=== PATIENT | female | born 1980 | race Caucasian/White ===

== ENCOUNTER 2018-12-05 21:09 | Emergency (ER) | payer OTHER ==
[~2018-12-05] VITALS: Ht 162.6 cm; Wt 71.7 kg
[~2018-12-05 21:09] MED LIST: CYCL10TA7 PO; NAPR-985 PO
[2018-12-05 21:28] VITALS: BP 117/58; PULSE 95; RESP 16; Ht 162.6 cm; Wt 71.7 kg
[2018-12-05] MEDS ORDERED: KETOROLAC 30 MG INJ IM STA (22:09)
[2018-12-05] MEDS ORDERED: DEXAMETHASONE 10 MG/ML 1 ML INJ IM ONE (22:30)
--- NOTE | 2018-12-06 01:21 | ERD ---
ER Documentation Chief Complaint Chief Complaint left flank pain started at 1200H today. HPI 38-year-old female presenting to the emergency department complaining of left- sided low back pain with radiation down her left leg intermittently for the past 2 months. Her pain is rated 8/10 in severity, intermittent, alleviated with [id number] medication. 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 Additional symptoms include full body aches. She denies any nausea, vomiting, diarrhea, fevers, dysuria, falls, or other symptoms at this time. ROS All systems reviewed and are negative except as per history of present illness. Medications Home Meds Active Scripts Naproxen* (Naprosyn*) 500 Mg Tablet, 500 MG PO BID PRN for PAIN AND/OR INFLA MMATION, #30 TAB Prov:KENY WARE PA-C 12/05/18 Cyclobenzaprine Hcl* (Cyclobenzaprine Hcl*) 10 Mg Tablet, 10 MG PO TID, #15 TAB Prov:KENY WARE PA-C 12/05/18 Allergies Allergies: Coded Allergies: No Known Allergy (Unverified , 12/05/18) PMhx/Soc Medical and Surgical Hx: pt denies Medical Hx, pt denies Surgical Hx Hx Alcohol Use: No Hx Substance Use: No Hx Tobacco Use: No Smoking Status: Never smoker FmHx Family History: No diabetes Physical Exam Vitals Vital Signs Date Temp Pulse Resp B/P (MAP) Pulse Ox O2 O2 Flow FiO2 Time Delivery Rate 12/05/18 99.2 95 16 117/58 99 21:28 (77) Physical Exam Const: No acute distress Head: Atraumatic Eyes: Normal Conjunctiva ENT: Normal External Ears, Nose and Mouth. Neck: Full range of motion. No meningismus. Resp: Clear to auscultation bilaterally Cardio: Regular rate and rhythm, no murmurs Abd: Soft, non tender, non distended. Normal bowel sounds Skin: No petechiae or rashes Back: No midline or flank tenderness. Tenderness palpation of the paraspinal muscles of the lumbar spine. Skin: No bruising or rash Compartments: Soft Motor: Normal flexion and extension of bilateral hip/knee/ankle/foot Sensation: Intact to light touch throughout Bones: No midline TTP Ext: No cyanosis, or edema Neur: Awake and alert Psych: Normal Mood and Affect Results 24 hrs Laboratory Tests Test 12/05/18 22:24 POC Beta HCG, Qualitative NEGATIVE Current Medications Medications Dose Sig/Arnoldo Start Time Status Last (Trade) Ordered Route PRN Stop Time Admin Dose Reason Admin 10 mg ONCE ONCE 12/05/18 DC 12/05/18 Dexamethasone IM 22:30 22:27 (Decadron) 12/05/18 22:31 Ketorolac 30 mg ONCE STAT 12/05/18 DC 12/05/18 Tromethamine IM 22:09 22:27 (Toradol) 12/05/18 22:10 Procedures/MDM 38-year-old female presents to the emergency department complaining of left- sided low back pain with radiation down her left leg. History and physical examination is consistent with low back pain with sciatica. Patient was administered Decadron and Toradol in the department with significant improvement of her symptoms. Patient's musculoskeletal symptoms have stabilized while they have been evaluated in the department and are appropriate for outpatient work up. No evidence of cauda equina, cord compression, infiltrative, or infectious etiology. Departure Diagnosis: Primary Impression: Low back pain with sciatica Chronicity: acute Back pain laterality: left Sciatica laterality: sciatica of left side Qualified Codes: M54.42 - Lumbago with sciatica, left side Condition: Fair Patient Instructions: Back Pain W/ Sciatica [facility] Usted se kennedy hecho un examen mdico de control que le indica que no est en jenn condicin que requiera tratamiento urgente en el Departamento de Emergencia. Un estudio ms profundo y el tratamiento de medrano condicin pueden esperar sin ningn riesgo hasta que usted sea atendida/o en el consultorio de medrano mdico o jenn clnica. Es responsabilidad suya arreglar jenn lisa para el seguimiento del selena. MANEJO DE CONDICIONES NO URGENTES EN EL FUTURO 1) Si usted tiene un mdico de atencin primaria: Usted debera llamar a medrano mdico de atencin primaria antes de venir al departamento de emergencia. Despus de las horas de consultorio, medrano doctor o medrano asociado/a est disponible por telfono. El mdico o enfermero de bernardo en el servicio telefnico puede asesorarle por keo medio para atender el problema, o selena contrario se puede programar jenn lisa. 2) Si usted no tiene un mdico de atencin primaria: Llame al mdico o clnica de referencia que aparece abajo chela las horas de consultorio para hacer jenn lisa para que le vean. CLINICAS: [facility] [phone] [id number] [facility] [facility] [phone] [facility] [phone] [address] [facility]. [place] [id number] [phone] [facility] [phone] [address] [facility]. [phone] [address] Additional Instructions: Llame al doctor MAANA y kathy jenn LISA PARA DENTRO DE 1-2 [place].Dgale a la secretaria que nosotros le instruimos hacer esta lisa.Avise o llame si medrano condicin se empeora antes de la lisa. Regresa aqui si peor o no mejor. KENY WARE PA-C Dec 06, 2018 01:21
== END 2018-12-05 23:40 | disposition home or self-care (01) ==
LOC: FTE 21:09
DX: M54.42 Lumbago with sciatica, left side (principal)
CPT/HCPCS: 81025; 96372; J1100; J1885; Z7502